=== PATIENT | female | born 2000 | race Caucasian/White ===

== ENCOUNTER 2024-11-02 16:31 | Emergency (ER) | payer MEDICAID, OTHER ==
[~2024-11-02] VITALS: Ht 165.1 cm; Wt 113.0 kg
[2024-11-02 16:34] VITALS: O2SAT 99
[2024-11-02 16:35] VITALS: BP 125/87; PULSE 105; RESP 16; TEMP 36.5; O2SAT 100
[2024-11-02] MEDS ORDERED: TAM75 MT (19:44)
== END 2024-11-02 20:08 | disposition home or self-care (01) ==
LOC: ER 16:31
DX: J10.1 Influenza due to other identified influenza virus with other respiratory manifestations (principal)
CPT/HCPCS: 71045; 81025; 93005; 99283